=== PATIENT | female | born 1935 | race Caucasian/White ===

== ENCOUNTER 2019-10-29 07:57 | Inpatient (IN) ==
[2019-10-29] MEDS ORDERED: Naloxone 0.4 MG/ML INJ IVP PRN (09:44)
[2019-10-29] MEDS ORDERED: Ringers Solution, Lactated 1,000 ML IVC SCH (09:45)
[2019-10-29] MEDS ORDERED: Piperacillin/Tazobactam 3.375 GM in 0.9 % Sodium Chloride Mini Bag 100 ML IVPB SCH ×2 (09:50→18:00)
[2019-10-29] MEDS ORDERED: *HR* OxyCODONE Oral Soln 5 MG/5 ML UD.LIQ PO PRN ×2 (09:56→18:50)
[2019-10-29] MEDS ORDERED: Albuterol 2.5 MG/3 ML NEBULIZER IH PRN (10:07)
[2019-10-29] MEDS ORDERED: Levothyroxine Sodium 100 MCG VIAL IVP SCH (10:15)
[2019-10-29] MEDS: *HR* Metoprolol 5 MG/5 ML VIAL IVP SCH ×3 (10:41→19:52)
[2019-10-29] MEDS: Insulin LISPRO 300 UNITS/3 ML VIAL SQ SCH ×2 (12:10→18:42)
[2019-10-29] MEDS ORDERED: *HR* HYDROmorphone (PF) 1 MG/ML SYRINGE IVP ONE ×2 (12:10→17:16)
[2019-10-29] MEDS: Ondansetron 4 MG/2 ML VIAL IVP PRN ×2 (12:13→18:39)
[2019-10-29] MEDS ORDERED: Bupivacaine/EPI 1:200k 0.5%PF 30 ML VIAL ONE (21:56)
[2019-10-29] MEDS ORDERED: *HR* OxyCODONE Immed Rel 5 MG TABLET PO PRN (22:02)
[2019-10-29] MEDS ORDERED: *HR* HYDROmorphone PF 0.5 MG/0.5 ML SYRINGE IVP PRN (22:02)
[2019-10-29] MEDS ORDERED: Acetaminophen IV 1,000 MG/100 ML INFUS..BTL ONE (22:04)
[2019-10-29] MEDS ORDERED: *HR* FentaNYL (PF) 100 MCG/2 ML VIAL ONE (22:05)
[2019-10-29] MEDS ORDERED: *HR* Rocuronium Bromide 50 MG/5 ML VIAL ONE (22:06)
[2019-10-29] MEDS ORDERED: *HR* Succinylcholine 200 MG/10 ML VIAL IVP ONE (22:06)
[2019-10-29] MEDS ORDERED: Lidocaine -MPF 2% 2 ML VIAL ONE (22:06)
[2019-10-29] MEDS ORDERED: Dexamethasone 4 MG/ML VIAL ONE (22:06)
[2019-10-29] MEDS ORDERED: Ondansetron 4 MG/2 ML VIAL ONE (22:06)
[2019-10-29] MEDS ORDERED: *HR* Propofol 200 MG/20 ML VIAL IVP ONE (22:06)
[2019-10-29] MEDS ORDERED: Lidocaine HCL 4 ML Topical Solution (Laryng-O-Jet Kit Sterile Pak) TP ONE (22:44)
[2019-10-29] MEDS ORDERED: *HR* PHENYLEPHRINE 1,000 MCG/10 ML SYRINGE IVP ONE (22:53)
[2019-10-29] MEDS ORDERED: *HR* Cisatracurium 10 MG/5 ML VIAL IV ONE (23:42)
[2019-10-30] MEDS ORDERED: Acetaminophen IV 1,000 MG/100 ML INFUS..BTL IVPB SCH
[2019-10-30] MEDS ORDERED: Dexamethasone 4 MG/ML VIAL ONE (00:31)
[2019-10-30] MEDS ORDERED: *HR* Succinylcholine 200 MG/10 ML VIAL IVP ONE (00:31)
[2019-10-30] MEDS ORDERED: Ondansetron 4 MG/2 ML VIAL ONE (00:31)
[2019-10-30] MEDS ORDERED: Lidocaine -MPF 2% 2 ML VIAL ONE (00:31)
[2019-10-30] MEDS ORDERED: Naloxone 0.4 MG/ML INJ IVP PRN (01:08)
[2019-10-30] MEDS ORDERED: Ondansetron 4 MG/2 ML VIAL IVP PRN (01:08)
[2019-10-30] MEDS ORDERED: Ringers Solution, Lactated 1,000 ML IVC SCH (01:08)
[2019-10-30] MEDS ORDERED: Albuterol 2.5 MG/3 ML NEBULIZER IH PRN (01:08)
[2019-10-30] MEDS: *HR* OxyCODONE Oral Soln 5 MG/5 ML UD.LIQ PO PRN (01:27)
[2019-10-30] MEDS: *HR* Metoprolol 5 MG/5 ML VIAL IVP SCH (01:37)
[2019-10-30] MEDS: Insulin LISPRO 300 UNITS/3 ML VIAL SQ SCH ×4 (01:37→17:14)
[2019-10-30] MEDS ORDERED: *HR* Metoprolol 5 MG/5 ML VIAL IVP SCH (06:00)
[2019-10-30] MEDS ORDERED: Levothyroxine Sodium 100 MCG VIAL IVP SCH (06:30)
[2019-10-30 07:11] LABS: Basophils % 0.1 %; Hemoglobin 13.3 g/dL (11.5-15.4); Immature Granulocytes % 0.5 % (0-4); Lymphocytes # 0.5 K/mcL (0.6-4.6); Lymphocytes % 3.8 %; Mean Corpuscular HGB Conc 32.4 g/dL (31.6-35.5); Mean Corpuscular Hemoglobin 30.2 pg (28.0-33.3); Mean Platelet Volume 9.9 fL (9.4-12.4); Monocytes # 0.7 K/mcL (0.0-1.3); Monocytes % 5.5 %; Neutrophils # 10.7 K/mcL (1.6-8.9); Platelet Count 139 K/mcL (140-400); Red Blood Count 4.41 M/mcL (3.82-4.97); Red Cell Distribution Width 13.1 % (11.5-14.5); Segmented Neutrophils % 90.1 %
[2019-10-30 07:14] LABS: White Blood Count 11.9 K/mcL (4.3-11.1)
[2019-10-30 07:33] LABS: Alanine Aminotransferase 44 Units/L (7-52); Albumin 3.4 g/dL (3.5-5.7); Albumin/Globulin Ratio 1.6 (1.1-2.2); Alkaline Phosphatase 35 Units/L (34-104); Aspartate Amino Transferase 50 Units/L (13-39); BUN/Creatinine Ratio 20 (6-26); Bilirubin,Total 1.1 mg/dL (0.3-1.0); Blood Urea Nitrogen 12 mg/dL (8-23); Calcium 8.5 mg/dL (8.6-10.3); Carbon Dioxide 26 mEq/L (23-29); Chloride 100 mEq/L (98-107); Globulin 2.1 g/dL (2.4-3.5); Glucose 169 mg/dL (70-105); Osmolality,Calculated 286 (280-300); Potassium 3.7 mEq/L (3.5-5.1); Sodium 136 mEq/L (136-145); Total Protein 5.5 g/dL (6.4-8.9); eGFR For African Americans > 60 (> 60); eGFR For Non-African Americans > 60 (> 60)
[2019-10-30] MEDS: Acetaminophen IV 1,000 MG/100 ML INFUS..BTL IVPB SCH ×2 (07:33→14:17)
[2019-10-30] MEDS: Piperacillin/Tazobactam 3.375 GM in 0.9 % Sodium Chloride Mini Bag 100 ML IVPB SCH ×3 (08:45→23:59)
[2019-10-30] MEDS: ALPRAZolam 0.5 MG TABLET PO PRN ×2 (11:49→22:08)
[2019-10-30] MEDS: Losartan/HCTZ 50-12.5 TABLET PO SCH (11:49)
[2019-10-30] MEDS ORDERED: Acetaminophen 325 MG TABLET PO PRN (16:06)
[2019-10-30] MEDS ORDERED: Insulin LISPRO 300 UNITS/3 ML VIAL SQ SCH (21:00)
[2019-10-31] MEDS: *HR* OxyCODONE Oral Soln 5 MG/5 ML UD.LIQ PO PRN (02:34)
[2019-10-31 02:51] LABS: Basophils % 0.2 %; Eosinophils # 0.1 K/mcL (0.0-0.6); Hematocrit 36.5 % (35.3-44.9); Hemoglobin 12.1 g/dL (11.5-15.4); Immature Granulocytes % 0.4 % (0-4); Lymphocytes # 1.6 K/mcL (0.6-4.6); Lymphocytes % 15.1 %; Mean Corpuscular HGB Conc 33.2 g/dL (31.6-35.5); Mean Corpuscular Hemoglobin 30.9 pg (28.0-33.3); Mean Corpuscular Volume 93.4 fL (83.0-100.0); Mean Platelet Volume 9.7 fL (9.4-12.4); Monocytes # 0.6 K/mcL (0.0-1.3); Monocytes % 6.1 %; Neutrophils # 8.1 K/mcL (1.6-8.9); Platelet Count 131 K/mcL (140-400); Red Blood Count 3.91 M/mcL (3.82-4.97); Segmented Neutrophils % 77.2 %; White Blood Count 10.5 K/mcL (4.3-11.1)
[2019-10-31 03:13] LABS: Alanine Aminotransferase 41 Units/L (7-52); Albumin 3.4 g/dL (3.5-5.7); Albumin/Globulin Ratio 1.5 (1.1-2.2); Alkaline Phosphatase 53 Units/L (34-104); Aspartate Amino Transferase 45 Units/L (13-39); BUN/Creatinine Ratio 18 (6-26); Bilirubin,Total 1.1 mg/dL (0.3-1.0); Blood Urea Nitrogen 10 mg/dL (8-23); Calcium 8.6 mg/dL (8.6-10.3); Carbon Dioxide 28 mEq/L (23-29); Chloride 102 mEq/L (98-107); Globulin 2.3 g/dL (2.4-3.5); Glucose 110 mg/dL (70-105); Osmolality,Calculated 284 (280-300); Potassium 3.4 mEq/L (3.5-5.1); Sodium 137 mEq/L (136-145); Total Protein 5.7 g/dL (6.4-8.9); eGFR For African Americans > 60 (> 60); eGFR For Non-African Americans > 60 (> 60)
[2019-10-31] MEDS: Insulin LISPRO 300 UNITS/3 ML VIAL SQ SCH (08:28)
[2019-10-31] MEDS ORDERED: amLODIPine 5 MG TABLET PO SCH (09:00)
[2019-10-31] MEDS: Piperacillin/Tazobactam 3.375 GM in 0.9 % Sodium Chloride Mini Bag 100 ML IVPB SCH (09:03)
[2019-10-31] MEDS: Losartan/HCTZ 50-12.5 TABLET PO SCH (09:03)
[2019-10-31 10:47] VITALS: BP 137/75
== END 2019-10-31 11:17 | disposition home or self-care (01) | DRG 418 ==
LOC: 3BNU → SUATTDRO 09:21
PROVIDERS: ADMIT Internal Medicine; ATTEND Internal Medicine